=== PATIENT | male | born 1945 | race Two or more races ===

== ENCOUNTER 2020-07-07 08:41 | Day surgery (SDC) | payer OTHER | END 2020-07-07 14:30 | disposition home or self-care (01) | LOC: AMB-ENDOS 08:41 | PROVIDERS: ATTEND Colon & Rectal Surgery | DX: D12.5 Benign neoplasm of sigmoid colon (principal); K64.1 Second degree hemorrhoids; Z20.828 Contact with and (suspected) exposure to other viral communicable diseases ==

== ENCOUNTER 2021-08-10 09:02 | Day surgery (SDC) | payer OTHER ==
[~2021-08-10 09:02] MED LIST: KETO10TA2 PO; LOSARTAN POTAS100 MG; METFORMIN HCL500 M4; NORFLEX100MG PO; SIMVASTATIN20 MG
== END 2021-08-10 15:30 | disposition home or self-care (01) ==
LOC: AMB-ENDOS 09:02
PROVIDERS: ATTEND Colon & Rectal Surgery
DX: D12.0 Benign neoplasm of cecum (principal); D12.3 Benign neoplasm of transverse colon; D13.1 Benign neoplasm of stomach